=== PATIENT | male | born 2000 | race Caucasian/White ===

== ENCOUNTER 2018-03-19 21:51 | Emergency (ER) | payer SELFPAY, OTHER ==
[2018-03-19] MEDS: KETOROLAC 30 MG INJ IV (22:57)
== END 2018-03-19 23:55 | disposition home or self-care (01) ==
LOC: E/R 23:55
DX: S82.831A Other fracture of upper and lower end of right fibula, initial encounter for closed fracture (principal); F17.210 Nicotine dependence, cigarettes, uncomplicated; V00.131A Fall from skateboard, initial encounter; Y92.9 Unspecified place or not applicable
CPT/HCPCS: 29505; 73610-RT; 96374; 99284-25